=== PATIENT | male | born 1975 | race Caucasian/White ===

== ENCOUNTER 2019-09-21 10:19 | Emergency (ER) | payer OTHER, SELFPAY ==
[2019-09-21 10:25] VITALS: BP 169/79; PULSE 97; RESP 20; TEMP 37; O2SAT 100
--- NOTE | 2019-09-21 10:59 | ED.FEVER ---
HPI - Fever General Chief Complaint: Fever Stated Complaint: Has a fever Time Seen by Provider: 09/21/19 10:59 Source: patient and RN notes reviewed Mode of arrival: ambulatory Limitations: no limitations History of Present Illness HPI Narrative: 43-year-old male presents with complaints of being told he had a fever at work today. Eulogio says his temperature registered at 99.5 temporal at work today and he was instructed to seek medical care at an [facility] before he could return to work. Denies cold symptoms, ear pain, throat pain or decrease activity. Tolerating liquids well. Remains active. The patient reports they have not been diagnosed with COVID-19. The patient reports they are not waiting for the results of a COVID-19 lab test. The patient reports they do not have fever, chills, weakness, fatigue, myalgia, or facial swelling. The patient reports they do not have a new or worsening cough or shortness of breath. Denies chest pain. The patient reports they do not have any rhinorrhea, congestion, sore throat, nausea, vomiting, abdominal pain, and diarrhea. Tolerating po intake well. Denies recent traveling. Denies concerns for COVID-19 or exposures been home since [id number] order except for essential household needs, working, and return home. At this time, patient is not suspected of having COVID-19. Some parts of this dictation were generated by voice recognition software and may contain typographical and/or grammatical inaccuracies. Related Data Allergies Allergy/AdvReac Type Severity Reaction Status Date / Time No Known Allergies Allergy Unverified 11/18/17 18:21 Review of Systems Review of Systems: Narrative: CONSTITUTIONAL: Denies fever, chills, sweats. EYES: Denies visual changes, redness, discharge. ENT: Denies rhinorrhea, congestion, sore throat, otalgia. CARDIOVASCULAR: Denies chest pain, palpitations, edema. RESPIRATORY: Denies dyspnea, wheezing, cough. GASTROINTESTINAL: Denies abdominal pain, nausea, vomiting, diarrhea. GENITOURINARY: Denies dysuria, hematuria, abnormal discharge. SKIN: Denies rash or itching. MUSCULOSKELETAL: Denies acute back pain, joint pain, myalgia. NEUROLOGIC: Denies numbness or focal weakness. PSYCHIATRIC: Denies anxiety or depression. All systems reviewed & are unremarkable except as noted in HPI and below. PMFSH Past Medical History Medical History Obesity Smoker Surgical History Surgical History (Updated 09/21/19 @ 13:20 by SANDRINE Raymundo) Hx of laparoscopic gastric banding Family History Family History (Updated 09/21/19 @ 13:22 by SANDRINE Raymundo) Father Alive and well Mother Hypertension Grandparent Brain cancer Social History Social History (Updated 09/21/19 @ 13:23 by SANDRINE Raymundo) Smoking packs per day: 1.5 Smoking cigarettes per day: 30.0 Years smoked: 32 Smoking pack-years: 48.00 Smoking status: Current every day smoker Tobacco type: cigarettes Alcohol intake: current Substance use: never Living arrangements: with family Occupation/Education: occupation Gender identity (if verbalized by the patient): Male Comments At time of signature, agree with nurse past medical, surgical, social, and family history. There is no relevant family history pertinent to the presenting complaint. Exam Narrative: Exam Narrative: GENERAL: This is a well-nourished, well-developed patient, in no apparent distress. Talks in full sentences and ambulates with steady gait without dyspnea. HEAD: normocephalic, atraumatic. EYES: PERRL. Sclera clear/white. Vision is grossly intact. EARS: External ears normal, auditory canals clear and without drainage, TMs normal without perforation. Hearing grossly intact. NOSE: External nose normal with no obvious nasal discharge, nares with moderate redness and enlarged turbinates, clear rhinorrhea. THROAT: Mucous membranes moist, posterior pharynx with no erythem
== END 2019-09-21 11:20 | disposition home or self-care (01) ==
PROVIDERS: Emergency Provider Nurse Practitioner Family; PCP Internal Medicine
DX: R50.9 Fever, unspecified (principal); R03.0 Elevated blood-pressure reading, without diagnosis of hypertension; Z20.828 Contact with and (suspected) exposure to other viral communicable diseases; Z98.84 Bariatric surgery status; E66.9 Obesity, unspecified; Z68.33 Body mass index [BMI] 33.0-33.9, adult; F17.210 Nicotine dependence, cigarettes, uncomplicated
CPT/HCPCS: 99213; G0463

== ENCOUNTER 2021-10-19 12:12 | Emergency (ER) | payer OTHER, SELFPAY ==
--- NOTE | ~2021-10-19 | XR_ITS ---
EXAMINATION: XR knee LT min 4V DATE: 10/19/2021 13:55 INDICATION: Left knee pain TECHNIQUE: Five views of the left knee were obtained. COMPARISON: None. FINDINGS: Alignment is normal. No fracture or osteochondral lesion. There is mild tricompartmental os teoarthritis characterized by tiny marginal osteophytes. There is a moderate size knee joint effusion . There is medial soft tissue swelling of the knee. IMPRESSION: 1. Moderate size knee joint effusion and soft tissue swelling without acute osseous abnormality. Reviewed, dictated and finalized at [facility]. IMPRESSION: 1. Moderate size knee joint effusion and soft tissue swelling without acute oss eous abnormality.
[2021-10-19 12:34] VITALS: BP 154/86; PULSE 90; RESP 20; TEMP 37.2; O2SAT 100
--- NOTE | 2021-10-19 13:29 | ED.GENADULT ---
HPI - General Adult General Chief complaint: Extremity Problem,Nontraumatic Stated complaint: Water on knee History of Present Illness HPI narrative: Patient presents for evaluation of left knee pain for the last 6 days. He cannot identify any precipitating cause or injury. 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 He had similar symptoms in his right knee about 2.5 years ago. He was given steroids and states that his symptoms resolved. His current pain is severe, without descriptive quality or numerical rating.. He has associated swelling but denies any redness. Ambulation makes his symptoms worse. He was diagnosed with gastric ulcer approximately 2 weeks ago and is being treated with pantoprazole. He states that the ulcer was cauterized at [facility]. He has not had any recurrence of his GI symptoms since that time. Related Data Home Medications Medication Instructions Recorded Confirmed pantoprazole 40 mg tablet,delayed 1 tablet PO BID 10/19/21 10/19/21 release Allergies Allergy/AdvReac Type Severity Reaction Status Date / Time No Known Allergies Allergy Unverified 11/18/17 18:21 Review of Systems Review of Systems: CONSTITUTIONAL: Denies fever, chills, or sweats. EYES: Denies visual changes, redness, or discharge. ENT: Denies rhinorrhea, congestion, sore throat, or otalgia. CARDIOVASCULAR: Denies chest pain, palpitations, or edema. RESPIRATORY: Denies cough or dyspnea. GASTROINTESTINAL: Denies abdominal pain, nausea, vomiting, or diarrhea. GENITOURINARY: Denies dysuria or hematuria. SKIN: Denies rash or itching. MUSCULOSKELETAL: Reports left knee pain and swelling. Denies back pain NEUROLOGIC: Denies headache, numbness, dizziness, or weakness. PSYCHIATRIC: Denies anxiety or depression. [facility] Past Medical History Medical History Bursitis Obesity Smoker Surgical History Surgical History Hx of laparoscopic gastric banding Family History Family History Father Alive and well Mother Hypertension Grandparent Brain cancer Social History Social History Smoking packs per day: 1.5 Smoking cigarettes per day: 30.0 Years smoked: 32 Smoking pack-years: 48.00 Smoking status: Current every day smoker Tobacco type: cigarettes Alcohol intake: current Substance use: never Gender identity (if verbalized by the patient): Male Exam Narrative: GENERAL: Well-appearing, well-nourished, and in no acute distress. HEAD: Normocephalic, atraumatic. EYES: PERRLA and EOMI. ENT: Nares clear, no rhinorrhea or epistaxis. Mucous membranes moist. Oropharynx without tonsillar hypertrophy exudate or other lesions. Bilateral TMs pearly valdez nonbulging NECK: Supple. No adenopathy or masses. No carotid bruits or JVD CHEST: Clear to auscultation. No respiratory distress. No wheezes rales or rhonchi HEART: Regular rate and rhythm. No murmur heard. Normal peripheral pulses. ABDOMEN: Soft, nontender, nondistended, normal active bowel sounds. EXTREMITIES: Left knee is edematous. There is tenderness in the anterior aspect of the left knee. No crepitus or deformity SKIN: No erythema noted to left knee. Warm, dry, no rash. NEURO: No focal deficits. Alert and oriented x3. PSYCH: Normal mood and affect. Course Course Emergency Course: This is a 45-year-old male who present with complaints of left knee pain and swelling. Exam is consistent with bursitis. Effusion noted on x-ray. He cannot take NSAIDs due to recent GI ulcer. Will discharge with prednisone and hydrocodone. Advised knee immobilizer or or at least hinged knee brace. I advised he cannot ambulate without crutches. Advised on RICE therapy. He needs to follow up with ortho outpatient and return for worsenin
== END 2021-10-19 14:15 | disposition home or self-care (01) ==
PROVIDERS: Emergency Provider Nurse Practitioner; PCP Internal Medicine
DX: M70.52 Other bursitis of knee, left knee (principal); M25.462 Effusion, left knee; F17.210 Nicotine dependence, cigarettes, uncomplicated
CPT/HCPCS: 73564; 99213; G0463

== ENCOUNTER 2021-10-28 12:25 | Emergency (ER) | payer OTHER, SELFPAY ==
[2021-10-28 12:32] VITALS: BP 151/91; PULSE 88; RESP 20; TEMP 36.8; O2SAT 100
--- NOTE | 2021-10-28 13:04 | ED.EXTPRO ---
HPI - Extremity Problem General Chief complaint: Extremity Problem,Nontraumatic Stated complaint: left knee swelling Time Seen by Provider: 10/28/21 13:05 Source: patient, RN notes reviewed and old records reviewed Mode of arrival: ambulatory Limitations: no limitations History of Present Illness HPI Narrative: 46-year-old male who [facility] with complaints of his left knee continuing to swell and has some discomfort. Patient was seen in clinic on 10/19/2021 and treated with steroids for 5 days and was referred to Dr Pendleton for follow up. Patient states that he didn't know he was suppose to follow up with ortho. Patient reports that his knee has improved some since his initial visit with use of the steroid. Patient had treatment for ulcers in the past6 weeks and can not take any Ibuprofen or Aleve for pain has been taking some Tylenol. 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 No acute warmth noted to his knee with some swelling to knee with discomfort to anterior aspect of knee no crepitus or deformity. MD Complaint: other (left knee swelling) Severity scale (1-10): 4 Related Data Home Medications Medication Instructions Recorded Confirmed pantoprazole 40 mg tablet,delayed 1 tablet PO BID 10/19/21 10/28/21 release Allergies Allergy/AdvReac Type Severity Reaction Status Date / Time No Known Allergies Allergy Unverified 11/18/17 18:21 Review of Systems Review of Systems: CONSTITUTIONAL: Denies fever, chills, or sweats. EYES: Denies visual changes, redness, or discharge. ENT: Denies rhinorrhea, congestion, sore throat, or otalgia. CARDIOVASCULAR: Denies chest pain, palpitations, or edema. RESPIRATORY: Denies cough or dyspnea. GASTROINTESTINAL: Denies abdominal pain, nausea, vomiting, or diarrhea. GENITOURINARY: Denies dysuria or hematuria. SKIN: Denies rash or itching. MUSCULOSKELETAL: Denies back pain, positive for left knee pain and swelling, or myalgia. NEUROLOGIC: Denies headache, numbness, or weakness. PSYCHIATRIC: Denies anxiety or depression. All systems reviewed & are unremarkable except as noted in HPI and below PMFSH Past Medical History Medical History Bursitis Obesity Smoker Surgical History Surgical History Hx of laparoscopic gastric banding Family History Family History Father Alive and well Mother Hypertension Grandparent Brain cancer Social History Social History Smoking packs per day: 1.5 Smoking cigarettes per day: 30.0 Years smoked: 32 Smoking pack-years: 48.00 Smoking status: Current every day smoker Tobacco type: cigarettes Alcohol intake: current Substance use: never Gender identity (if verbalized by the patient): Male Comments At time of signature, agree with nursing past medical, surgical, social and family history. There is no relevant family history pertinent to the presenting complaint Exam Narrative: GENERAL: Well-appearing, well-nourished, and in no acute distress. HEAD: Normocephalic, atraumatic. EYES: PERRLA and EOMI. ENT: Nares clear, no rhinorrhea or epistaxis. Mucous membranes moist.TM's normal with good light reflex, throat pink with no lesions or exudates or tonsil swelling NECK: Supple. no lymphadenopathy CHEST: Clear to auscultation. No respiratory distress.SAO2 100% on room air HEART: Regular rate and rhythm. No murmur heard. Normal peripheral pulses. ABDOMEN: Soft, nontender, nondistended, normal active bowel sounds. EXTREMITIES: Normal range of motion. No edema. Exception noted to mild swelling to left knee with discomfort to anterior aspect of knee with no crepitus noted, able to bend knee well no obvious deformity or acute warmth. SKIN: Warm, dry, no rash. NEURO: No focal deficits. Alert and oriented x3. Course Course
== END 2021-10-28 13:54 | disposition home or self-care (01) ==
PROVIDERS: Emergency Provider Registered Nurse; PCP Internal Medicine
DX: M25.562 Pain in left knee (principal); F17.210 Nicotine dependence, cigarettes, uncomplicated; E66.9 Obesity, unspecified; Z68.34 Body mass index [BMI] 34.0-34.9, adult
CPT/HCPCS: 99213; G0463

== ENCOUNTER 2021-11-05 10:26 | Outpatient (CLI) | payer OTHER, SELFPAY ==
--- NOTE | ~2021-11-05 | US_ITS ---
US venous doppler [facility] DATE: 11/05/2021 11:08 INDICATION: Left leg pain TECHNIQUE: Real-time and color flow imaging and Doppler analysis of the veins of the left lower extre mity COMPARISON: None FINDINGS: The left greater saphenous vein is patent. There is spontaneous and phasic flow and normal augmentation and color flow signal and normal compression of the deep veins of the left lower extremi ty IMPRESSION: No evidence of deep venous thrombosis of the left leg Reviewed, dictated and finalized at [facility]. Reviewed, dictated and finalized at location [facility].
[2021-11-05 12:07] LABS: Basophils Percent Auto 0.4 % (0.2-1.2); Eosinophils Absolute Auto 0.1 K/mm3 (0-0.3); Eosinophils Percent Auto 1.5 % (0-4.4); Hematocrit 35.5 % (42.0-52.0); Hemoglobin 11.4 g/dL (14.0-18.0); Immature Granulocyte Absolute 0.02 K/mm3 (0.00-0.031); Immature Granulocyte Percent A 0.3 % (0-0.5); Lymphocytes Absolute Auto 1.13 K/mm3 (0.9-3.2); Lymphocytes Percent Auto 15.5 % (18.3-44.2); Mean Corpuscular HGB Conc 32.1 g/dl (32-36); Mean Corpuscular Hemoglobin 32.3 pg (26-34); Mean Corpuscular Volume 100.6 fl (80-100); Mean Platelet Volume 9.1 fl (7.4-10.4); Monocytes Absolute Auto 0.8 K/mm3 (0.1-0.6); Neutrophils Absolute Auto 5.2 K/mm3 (1.3-6.7); Neutrophils Percent Auto 71.3 % (45.5-73.1); Platelet Count Result 291 k/mm3 (150-375); Red Blood Count 3.53 M/mm3 (4.6-6.20); Red Cell Distribution Width 16.6 % (11.5-14.5); White Blood Count 7.3 K/mm3 (4.5-10.0)
[2021-11-05 12:22] LABS: CRP 0.8 mg/dL (<1.0); Uric Acid 6.3 mg/dL (3.5-8.5)
[2021-11-05 12:35] LABS: Erythrocyte Sedimentation Rate 15 mm/hr (0-20)
[2021-11-05 13:27] LABS: Rheumatoid Factor < 8.6 IU/ML (<12)
== END 2021-11-05 10:27 | disposition home or self-care (01) ==
PROVIDERS: PCP Internal Medicine; Visit Provider Orthopaedic Surgery
DX: M25.462 Effusion, left knee (principal); M79.605 Pain in left leg
CPT/HCPCS: 36415; 84550; 85025; 85652; 86038; 86140; 86430; 93971